=== PATIENT | female | born 1970 | race Caucasian/White ===

== ENCOUNTER 2020-04-16 11:19 | Day surgery (SDC) | payer BC ==
[2020-04-16] VITALS (9 sets, daily range): BP systolic 110–129; BP diastolic 63–87
[~2020-04-16] VITALS: Ht 162.6 cm; Wt 64.6 kg
[2020-04-16] MEDS ORDERED: CYCL-1 PO (12:26)
[2020-04-16] MEDS ORDERED: LEVO112C2 PO (12:26)
[2020-04-16] MEDS ORDERED: HYDR200T84 PO (12:26)
[2020-04-16] MEDS ORDERED: AZEL23SP BOTHNARES (12:26)
[2020-04-16] MEDS ORDERED: OMEP40CA13 PO (12:26)
[2020-04-16] MEDS ORDERED: LIOT5TAB10 PO (12:26)
[2020-04-16] MEDS ORDERED: TRIA1CAP6 PO (12:26)
[2020-04-16] MEDS ORDERED: ALBU8HFA PO (12:26)
[2020-04-16] MEDS ORDERED: HYDR-3972 PO (12:26)
[2020-04-16 13:04] LABS: BASOPHILS # (AUTO) 0.1 X10'3 (0-0.2); BASOPHILS % (AUTO) 0.9 % (0-1); EOSINOPHILS # (AUTO) 0.1 X10'3 (0-0.9); EOSINOPHILS % (AUTO) 2.5 % (0-6); HEMATOCRIT 39.9 % (35.0-45.0); HEMOGLOBIN 13.5 g/dl (12.0-16.0); LYMPHOCYTES # (AUTO) 1.2 X10'3 (1.1-4.8); LYMPHOCYTES % (AUTO) 21.6 % (21-51); MEAN CORPUSCULAR HEMOGLOBIN 29.6 PG (27.0-31.0); MEAN CORPUSCULAR HGB CONC 33.8 g/dL (33.0-36.5); MEAN CORPUSCULAR VOLUME 87.5 FL (78-98); MEAN PLATELET VOLUME 9.1 FL (7.4-10.4); MONOCYTES # (AUTO) 0.4 X10'3 (0-0.9); MONOCYTES % (AUTO) 7.2 % (2-12); NEUTROPHILS # (AUTO) 3.9 X10'3 (1.8-7.7); NEUTROPHILS % (AUTO) 67.8 % (42-75); PLATELET COUNT 248 X10'3 (140-440); RED BLOOD COUNT 4.56 X10'6 (4.20-5.60); RED CELL DISTRIBUTION WIDTH 12.7 % (11.5-14.5); WHITE BLOOD COUNT 5.8 X10'3 (4.5-11.0)
[2020-04-16] MEDS ORDERED: HYDROcodone/acetaminophen 5mg/325mg tablet PO PRN (13:55)
== END 2020-04-16 15:45 | disposition home or self-care (01) ==
LOC: SSTAY O 11:19
PROVIDERS: ATTEND Radiology Vascular & Interventional Radiology
DX: R94.5 Abnormal results of liver function studies (principal); Z20.828 Contact with and (suspected) exposure to other viral communicable diseases; Z87.11 Personal history of peptic ulcer disease; Z79.899 Other long term (current) drug therapy; Z96.661 Presence of right artificial ankle joint; Z98.890 Other specified postprocedural states; Z72.89 Other problems related to lifestyle; Z88.8 Allergy status to other drugs, medicaments and biological substances; Z88.2 Allergy status to sulfonamides
CPT/HCPCS: 36415; 47000; 76942; 85025; 85610; 87635; C9803